=== PATIENT | male | born 1980 | race Caucasian/White ===

== ENCOUNTER 2017-09-16 21:59 | Emergency (ER) | payer BC ==
[2017-09-16 22:16] VITALS: BP 137/95
== END 2017-09-16 23:00 | disposition home or self-care (01) ==
LOC: ED 21:59
DX: S61.217A Laceration without foreign body of left little finger without damage to nail, initial encounter (principal); Z88.0 Allergy status to penicillin; Z88.2 Allergy status to sulfonamides; W45.8XXA Other foreign body or object entering through skin, initial encounter; Y93.89 Activity, other specified; Y99.8 Other external cause status; Y92.89 Other specified places as the place of occurrence of the external cause
CPT/HCPCS: J2001

== ENCOUNTER 2018-12-15 10:07 | Emergency (ER) | payer SELFPAY | END 2018-12-15 10:18 | disposition left against medical advice (07) | LOC: ED 10:07 | DX: Z53.21 Procedure and treatment not carried out due to patient leaving prior to being seen by health care provider (principal) ==